=== PATIENT | male | born 1995 | race Caucasian/White ===

== ENCOUNTER 2019-05-15 13:11 | Emergency (ER) | payer BC ==
--- OUTSIDE RECORDS SUMMARY | 2019-05-15 13:24 | XMS REPORT | Continuity of Care Document ---
:1995 External Reference #:[id number] Author Name JOSE ALBERTO Pugh Address [address] [place] [address] Problems Description No Active Problems Social History Type Date Description Comments Sex Unknown Tobacco Use Start: Unknown Patient has never smoked Smoking Status Reviewed: 05/11/19 Patient has never smoked Seat Belt/Car Seat Always uses seat belt Allergies, Adverse Reactions, Alerts Description No Known Drug Allergies Medications Description No Active Medications Medications Administered in Office Medication SIG Qnty Indications Ordering Provider Date DPT Injection Unknown 1997 DPT Injection Unknown 1997 DPT Injection Unknown 1997 Immunizations CPT Code Status Date Vaccine Lot # [id number] Given 07/10/2015 Gardasil 9 [id number] 25953 Given 02/06/2015 Gardasil 9 [id number] 23580 Given 01/03/2015 Meningococcal Conjugate Vaccine [id number] 18422 Given 01/03/2015 Flu/Sanofi/Fluzone Iiv4 3Yrs And Older [id number] 20043 Given 01/03/2015 Gardasil 9 [id number] 62358 Given 06/30/2011 Meningococcal Conjugate Vaccine [id number] 46003 Given 01/01/2010 Hep A Vac. Ped/Adolescent [id number] 73362 Given 05/24/2008 Boostrix (Records Only) 54383 Given 05/24/2008 Hep A Vac. Ped/Adolescent 72852 Given 11/14/2001 Poliomyelitis Vaccine 67823 Given 11/14/2001 MMR 03773 Given 11/14/2001 Dtap 49834 Given 09/26/1998 Hib Titer 21687 Given 09/26/1998 Dtap 62766 Given 03/11/1998 MMR 84426 Given 1997 Hep B Vac, (0-19) (3 Dose) 65691 Given 1997 Poliomyelitis Vaccine 04263 Given 1997 Hib Titer 96744 Given 1997 Poliomyelitis Vaccine 74506 Given 1997 Hib Titer 32173 Given 1997 Poliomyelitis Vaccine 47649 Given 1997 Hib Titer Records Only 82544 Given 1997 Hep B Vac, (0-19) (3 Dose) 15213 Given 1997 Hep B Vac, (0-19) (3 Dose) Vital Signs Date Vital Result Comment 05/11/2019 2:22pm Weight 145.50 lb Height 61.75 inches 5'1.75" BP Systolic 130 mmHg BP Diastolic 70 mmHg Heart Rate 88 /min BMI (Body Mass Index) 26.8 kg/m2 Z68.26 A, 26.0-26.9 06/26/2016 1:38pm Weight 130.00 lb Height 62 inches 5'2" BP Systolic 138 mmHg BP Diastolic 80 mmHg Heart Rate 64 /min Regular BMI (Body Mass Index) 23.8 kg/m2 Body Mass Index Percentile 3 % Results Description No Information Available Procedures Description No Information Available Medical Devices Description No Information Available Encounters Description No Information Available Assessments Date Code Description Provider 05/11/2019 R42 Dizziness and giddiness JOSE ALBERTO Pugh 05/11/2019 Z68.26 Body mass index (BMI) 26.0-26.9, adult JOSE ALBERTO Pugh Plan of Treatment 05/11/2019 - MELISA PughPR42 Dizziness and giddinessComments:See an eye doctor to make sure your glasses Rx is goodFlonase, Claritin or Zyrtec, salt water gargles for a few weeksCan take tylenol or ibuprofen as czvxooR23.26 Body mass index (BMI) 26.0-26.9, adultComments:managed per PCPAllNew Medication:No Active Medications - Functional Status Functional Condition Comment Date Status Glasses Active Mental Status Description No Information Available Referrals Description No Information Available
[2019-05-15 13:46] VITALS: BP 129/50
--- NOTE | 2019-05-15 14:01 | UC ---
Throat Pain/Nasal Bib HPI - HPI Summary HPI Summary: Pt states he has been having headaches and was evaluated by his MD and then he started to have a sore throat 2 days ago. Pt is concerned about strep. Pt is also concerned that he should be std tested due to sore throat. Pt also having bilateral ear pain - History of Current Complaint Chief Complaint: UCGeneralIllness Stated Complaint: SORE THROAT Time Seen by Provider: 05/15/19 14:00 Hx Obtained From: Patient Onset/Duration: Sudden Onset, Lasting Days Severity: Mild Pain Intensity: 2 Cough: Nonproductive Associated Signs & Symptoms: Positive: Dysphagia - Allergies/Home Medications Allergies/Adverse Reactions: Allergies Allergy/AdvReac Type Severity Reaction Status Date / Time No Known Allergies Allergy Verified 05/15/19 13:46 Home Medications: Home Medications NK [No Home Medications Reported] 05/15/19 [History Confirmed 05/15/19] PMH/Surg Hx/FS Hx/Imm Hx Previously Healthy: Yes - Surgical History Surgical History: None - Family History Known Family History: Positive: Hypertension - Social History Alcohol Use: Occasionally Substance Use Type: None Smoking Status (MU): Never Smoked Tobacco Review of Systems All Other Systems Reviewed And Are Negative: Yes ENT: Positive: Sore Throat Gastrointestinal: Positive: Nausea Neurological: Positive: Headache Is Patient Immunocompromised?: No Physical Exam Triage Information Reviewed: Yes Appearance: Well-Appearing, Well-Nourished, Pain Distress Vital Signs: Initial Vital Signs Temp 98.7 F 05/15/19 13:40 Pulse 93 05/15/19 13:40 Resp 16 05/15/19 13:40 BP 129/50 05/15/19 13:40 Pulse Ox 99 05/15/19 13:40 Vital Signs Reviewed: Yes Eye Exam: Normal ENT: Positive: Pharyngeal erythema, TM bulging, Tonsillar swelling, Tonsillar exudate Dental Exam: Normal Respiratory Exam: Normal Cardiovascular Exam: Normal Abdominal Exam: Normal Musculoskeletal Exam: Normal Skin Exam: Normal Throat Pain/Nasal Course/Dx - Course Course Of Treatment: hx obtained, exam performed ,meds reviewed, rapid strep obtained - Differential Dx/Diagnosis Differential Diagnosis/HQI/PQRI: Otitis Media, Pharyngitis, Sinusitis, URI Discharge ED - Sign-Out/Discharge Documenting (check all that apply): Patient Departure All imaging exams completed and their final reports reviewed: No Studies - Discharge Plan Condition: Stable Disposition: HOME Patient Education Materials: Pharyngitis (ED) Referrals: Miguel PACHECO,Tevin Eastman [Primary Care Provider] - - Billing Disposition and Condition Condition: STABLE Disposition: Home
== END 2019-05-15 14:49 | disposition home or self-care (01) ==
LOC: UCCORT 13:11
DX: J02.9 Acute pharyngitis, unspecified (principal); R13.10 Dysphagia, unspecified; H92.03 Otalgia, bilateral
CPT/HCPCS: 87070; 87651; 99201; G0463

== ENCOUNTER 2019-06-30 16:51 | Emergency (ER) | payer BC ==
--- OUTSIDE RECORDS SUMMARY | 2019-06-30 16:58 | XMS REPORT | Continuity of Care Document ---
:1995 Author Organization 0001 - [facility] Address [address] [place] [address] Phone Care Team Providers Name Role Phone DENNY BARNETT PA-C Unavailable Unavailable Allergies, Adverse Reactions, Alerts Substance Reaction Status Substance Type Unknown WARNIN allergy(ies) could not be collected because the type is not supported. Please contact [facility] for further details. Medications Medication Instructions Dosage Effective Dates Status Comments (start - stop) ibuprofen 600 mg tablet take 1 tablet by ORAL - Active route every 8 hours with food as needed for back pain, cyclobenzaprine 5 mg take 1or 2 tablets - Active tablet at bedtime as needed for back pain. Problems Condition Effective Dates (start - stop) Clinical Status Generalized headaches Strain of thoracic region, initial encounter Pharyngitis, Acute - Headache Pharyngitis, Acute Headache Pharyngitis, Acute Headache URI Upper Respiratory Infection, Acute Cough Upper Respiratory Infection, Acute Cough Upper Respiratory Infection, Acute - Cough - Upper Respiratory Infection, Acute - Cough - Upper Respiratory Infection, Acute - Enthesopathy, wrist/carpus Acute Procedures Procedure Date Office/outpatient visit,est, mod Medical Services After Hours Results Test Name Date and Time Measure Units Reference Range Abnormal Flag Status Comments Unknown Encounters Encounter Practice Location Reason(s) Diagnoses Date Provider Providers Description For Visit Copied on Encounter Office/outpat 2019 - [facility] Walk-In Headache Generalized ANIBAL ient [facility], [address] [place] [address] (chief headaches DENNY. visit,est, Cristhian Tinoco complaint) [address], [place], [place], [place], [place] [address], [place] In, tel:[phone] [place], [id number] [place], [address]. tel:+ [phone] 0001 - [facility] Walk-In Strain of [employer], [address] thoracic region, KIMANII Cristhianshakir Saavedra initial [address], encounter [address], [place], [place], [address], [place], [address]. tel:+ tel:[phone] 0001 - [facility] Walk-In Pharyngitis, WALKER [facility], [address] [place] [address] AcuteHeadachePha [address]. Provider: Cristhian Saavedra ryngitis, [address] [facility], AcuteHeadachePha [facility]. [place], [place], [place], [address]. [address], [place] tel:+ tel:[phone] 0001 - [facility] Walk-In Enthesopathy, SANDRO Referring [facility], [address] [place] [address] wrist/carpus [address]. . Provider: Cristhian Saavedra [address] [facility] [place], [address], [place] tel:[phone] 0001 - [facility] Walk-In URIUpper Jul- [employer] Referring [facility], [address] [place] [address] Respiratory [address]. Provider: Cristhian Saavedra Infection, [address], AcuteCoughUpper [facility]. [place] Respiratory [place], [place], [place], [address]. [address], [place] AcuteCoughUpper tel:[phone] tel:[phone] Respiratory [phone] Infection, AcuteCoughUpper Respiratory Infection, AcuteCoughUpper Respiratory Infection, Acute 0001 - [facility], [address] Rad[address]. . Provider: Cristhian Saavedra [facility] [place], [address], [place] tel:[phone] Family History Family Member Diagnosis Age At Onset Unknown Immunizations Vaccine Date Status Comments Immunization Unknown Payers Payer name Insurance type Covered libertarian ID Authorization(s) Caity Dinh [id number] Social History Type Description Quantity Date Captured Comments Alcohol Use Details No Caffeine Use Details soda occasionally per day Tobacco Use Status Unknown Smoking Status Never smoker Vital Signs Date / Height Weight BMI Pulse Blood Temperature Respiratory Body Head BMI Time: Rate Pressure Rate Surface Circumference percentile Area 147.71 70 130/85 99.30 F /min -2019 lbs /min mm[Hg] 7:58 PM Chief Complaint And Reason For Visit Most recent encounter only, dated '05/05/2019 19:41'. Headache (chief complaint). Description: Onset: 2 Weeks. The severity of the problem is mild. Painscale: 3/10. The problem has not changed. The symptoms are recurring. Locations affected include frontal. Associated symptoms include lightheaded. Pertinent negatives include blurred vision and loss of consciousness. Additional information: Patient reports headaches for several months that make him feel slightly disoriented. He feels a non painful bump on forehead but denies injury. Reason For Referral Reason For Referral Unknown Plan Of Care Date Type Action Status Unknown Date Type Problem Goal Intervention Status Start Date Unknown History Of Present Illness Encounter Date Complaint History Of Present Illness Headache (comments) has had several months of head discomfort. states it is not pain but feels vaguely disoriented and lightheaded. no loss of consciousness, blurred vision, slurred speech, weakness, fevers.today noticed a bump on his forehead. it does not hurt, he did not hit his head. was concerned that this may have something to do with his headaches.has tried to get in with PCP but they have not called back. Headache Onset: 2 Weeks. The severity of the problem is mild. Pain scale: 3/10. The problem has not changed. The symptoms are recurring. Locations affected include frontal. Associated symptoms include lightheaded. Pertinent negatives include blurred vision and loss of consciousness. Additional information: Patient reports headaches for several months that make him feel slightly disoriented. He feels a non painful bump on forehead but denies injury. Functional Status Encounter Date Functional Assessment Cognitive Assessment N/A N/A Medications Administered Medication Instructions Dosage Effective Dates (start - stop) Status Comments Drug Treatment Unknown Instructions Date Instruction Additional Information Neuro exam was normal today. Will not Related to Generalized headaches obtain CT imaging at this time.Follow up with your primary care provider within the next week. Call on Wednesday to get an appointment. You may need further work-up including blood work and imaging.Tylenol and ibuprofen as needed for headache. Dosing according to package instructions.Important to stay well hydrated.Minimize screen time from all sources. Avoid bright lights, loud noises or other stimuli that worsen headache. Avoid physical activity until feeling well. If symptoms return with activity then stop and rest until feeling well. Report to the ER with severe or worsening headache, vision loss, slurred speech, weakness on any side of the body, high fever, or intractable vomiting. ibuprofen and muscle relaxant as Related to Strain of thoracic needed revisit with your usual region, initial encounter doctor if recurrent episodesmight need updated back xray and or referral to physical therapy for back strengthening program Thank you for choosing the [facility] Walk In. We hope that you will be feeling better soon.Any condition can change and some diseases may worsen despite proper treatment. Other problems may begin with vague or unusual symptoms and only over time will the problem become more clear, making it possible to arrive at the correct diagnosis. Your visit today is not a substitute for, or an effort to provide complete medical care. In most cases, you should let your primary care doctor check you again. Tell your doctor about any new or lasting problems. If you do not have a primary care provider, you have been given a list today of local providers who are accepting new patients. All x-rays are interpreted by a radiologist, usually within 48 hours. If there is any important difference between the radiologist's interpretation and what you were told today by the provider, you will be notified. If you had cultures done today, results will be available in 72 hours, depending on specimen.-
[2019-06-30 17:11] VITALS: BP 131/58
--- NOTE | 2019-06-30 18:04 | UC ---
Skin Complaint HPI - HPI Summary HPI Summary: Pt presents with c/o small "white head: like pimple on base of shaft of penis. Pt states taht he is sexually active and has not been using condoms. Pt denies STD hx. Denies dysuria, testicular tenderness, or discharge - History of Current Complaint Chief Complaint: UCSkin Time Seen by Provider: 06/30/19 17:57 Stated Complaint: SKIN COMPLAINT Hx Obtained From: Patient Onset/Duration: Sudden Onset, Lasting Days, Still Present Skin Exposure Onset/Duration: Days Ago - pt unsure of onset Timing: Constant Onset Severity: Mild Current Severity: Mild Pain Intensity: 3 Location: Discrete - left side base of posterior shaftof penis Character: Raised Aggravating Factor(s): Touch Alleviating Factor(s): Unknown Associated Signs & Symptoms: Positive: Rash - single raised, closed comedone Related History: Other: - unsafe sex - Allergy/Home Medications Allergies/Adverse Reactions: Allergies Allergy/AdvReac Type Severity Reaction Status Date / Time No Known Allergies Allergy Verified 06/30/19 17:06 Home Medications: Home Medications NK [No Home Medications Reported] 05/15/19 [History Confirmed 06/30/19] PMH/Surg Hx/FS Hx/Imm Hx Previously Healthy: Yes - Surgical History Surgical History: None - Family History Known Family History: Positive: Hypertension - Social History Occupation: Student Lives: With Family Alcohol Use: Occasionally Substance Use Type: None Smoking Status (MU): Never Smoked Tobacco Have You Smoked in the Last Year: No - Immunization History Vaccination Up to Date: Yes Review of Systems All Other Systems Reviewed And Are Negative: Yes Constitutional: Positive: Negative Skin: Positive: Other - small, single, "pimple" on shaft of penis Eyes: Positive: Negative ENT: Positive: Negative Respiratory: Positive: Negative Cardiovascular: Positive: Negative Gastrointestinal: Positive: Negative Genitourinary: Positive: Ulceration/Lesion - small pimple like lesion on shaft of penis, non tender Motor: Positive: Negative Neurovascular: Positive: Negative Musculoskeletal: Positive: Negative Neurological/Mental Status: Positive: Negative Psychological: Positive: Negative Is Patient Immunocompromised?: No Physical Exam Triage Information Reviewed: Yes Appearance: Well-Appearing Vital Signs: Initial Vital Signs Temp 98.1 F 06/30/19 17:06 Pulse 77 06/30/19 17:06 Resp 13 06/30/19 17:06 BP 131/58 06/30/19 17:06 Pulse Ox 100 06/30/19 17:06 Vital Signs Reviewed: Yes Eye Exam: Normal ENT: Positive: Hearing grossly normal Neck exam: Normal Respiratory: Positive: No respiratory distress Male Genital Exam: Positive: Other - small, non tender, closed comedone on posterior aspect of shaft of penis. no drainage, Musculoskeletal Exam: Normal Neurological Exam: Normal Psychological Exam: Normal Skin Exam: Other - small closed comedone, non tender, on shaft of penis Course/Dx - Differential Diagnoses - Skin Complaint Differential Diagnoses: Other - herpes, syphilis - Diagnoses Provider Diagnosis: Closed comedone Discharge ED - Sign-Out/Discharge Documenting (check all that apply): Patient Departure All imaging exams completed and their final reports reviewed: No Studies - Discharge Plan Condition: Stable Disposition: HOME Patient Education Materials: Folliculitis (ED), Warm Compress or Soak (ED) Referrals: Miguel PACHECO,Tevin Eastman [Primary Care Provider] - If Needed - Billing Disposition and Condition Condition: STABLE Disposition: Home - Attestation Statements Provider Attestation: This patient was not seen by me. I was available for consult. Chart reviewed. VAL
== END 2019-06-30 18:11 | disposition home or self-care (01) ==
LOC: UCCORT 16:51
DX: L70.0 Acne vulgaris (principal)
CPT/HCPCS: 99211; G0463

== ENCOUNTER 2022-07-21 09:22 | Observation (INO) ==
[2022-07-21 12:22] LABS: ABS Eosinophils 0.1 10^3/ul (0-0.6); ABS Lymphocytes 1.2 10^3/ul (1.0-4.8); ABS Monocytes 0.7 10^3/ul (0-0.8); ABS Neutrophils 8.7 10^3/ul (1.5-7.7); Hematocrit 39 % (42-52); Hemoglobin 13.5 g/dL (14.0-18.0); Lymphocyte % 11.5 %; Mean Corpuscular HGB Conc 35 g/dL (31-36); Mean Corpuscular Hemoglobin 31 pg (27-31); Mean Corpuscular Volume 90 fL (80-94); Mean Platelet Volume 8.3 fL (7.4-10.4); Platelet Count 201 10^3/uL (150-450); Red Blood Count 4.31 10^6 /uL (4.18-5.48); Red Cell Distribution Width 13 % (10-15); White Blood Count 10.7 10^3/uL (3.5-10.8)
[2022-07-21 12:52] LABS: Calcium 8.7 mg/dL (8.6-10.3); Creatinine, Serum 0.79 mg/dL (0.67-1.17); eGFR CKD-EPI 126.4 (>60)
[2022-07-21 13:06] LABS: TSH Ultra Thyroid Stim Horm 1.31 mcIU/mL (0.34-5.60)
[2022-07-21 15:24] LABS: Calcium (PTH Intact) 8.7 mg/dL (8.6-10.3)
[2022-07-21 17:53] VITALS: BP 115/77
== END 2022-07-21 19:30 | disposition home or self-care (01) ==
LOC: ED 09:22 → EDHOLD 09:22
PROVIDERS: ADMIT Internal Medicine; ATTEND Internal Medicine